=== PATIENT | male | born 1995 | race Two or more races ===

== ENCOUNTER 2023-10-09 10:26 | Emergency (ER) | payer OTHER ==
[~2023-10-09] VITALS: Ht 193 cm; Wt 87.7 kg
[~2023-10-09 10:26] MED LIST: IBUP-1492 PO; PENI500T2 PO
[2023-10-09 10:28] VITALS: TEMP 98.2
[2023-10-09] MEDS ORDERED: PANT40TA54 PO (10:30)
[2023-10-09] MEDS ORDERED: BENZ100C68 PO (10:30)
[2023-10-09 10:37] LABS: COVID AG,FIA SOURCE NASAL SWAB
[2023-10-09 11:23] LABS: SARS-COV2 (COVID) ANTIGEN,FIA Negative (Negative)
[2023-10-09 11:28] LABS: INFLUENZA TYPE A NEGATIVE FOR TYPE A (NEGATIVE); INFLUENZA TYPE B NEGATIVE FOR TYPE B (NEGATIVE)
[2023-10-09] MEDS ORDERED: ALBU18HF12 IH (12:06)
[2023-10-09] MEDS ORDERED: AZIT250T9 PO (12:06)
[2023-10-09 12:26] VITALS: BP 121/79; PULSE 88; RESP 20
== END 2023-10-09 12:30 | disposition home or self-care (01) ==
LOC: EMS 10:31
DX: J40 Bronchitis, not specified as acute or chronic (principal); Z98.890 Other specified postprocedural states; Z20.822 Contact with and (suspected) exposure to COVID-19
CPT/HCPCS: 71045; 87804; 99284

== ENCOUNTER 2023-10-13 17:25 | Emergency (ER) | payer OTHER ==
[~2023-10-13] VITALS: Ht 193 cm; Wt 87.7 kg
[~2023-10-13 17:25] MED LIST changes: +ALBU18HF12 IH; +AZIT250T9 PO; +BENZ100C68 PO; -IBUP-1492 PO; +PANT40TA54 PO; -PENI500T2 PO
[2023-10-13 17:44] VITALS: BP 140/86; PULSE 59; RESP 18; TEMP 97.9
[2023-10-13] MEDS ORDERED: FLUT16SP NASAL (18:56)
== END 2023-10-13 19:47 | disposition home or self-care (01) ==
LOC: EMS 17:28
DX: R09.82 Postnasal drip (principal); K21.9 Gastro-esophageal reflux disease without esophagitis
CPT/HCPCS: 99283; Z7502